=== PATIENT | female | born 1955 | race African-American/Black ===

== ENCOUNTER 2025-05-13 21:02 | Emergency (ER) | payer OTHER ==
[~2025-05-13] VITALS: Ht 175.3 cm; Wt 112.0 kg
[2025-05-13] MEDS ORDERED: PREDNISONE 20MG TABLET PO ONE (21:45)
[2025-05-13] MEDS: PREDNISONE 20MG TABLET PO NR (21:45)
[2025-05-13] MEDS: ALBUTEROL (0.083%) 2.5MG/3ML NEB HHN SCH (22:52)
[2025-05-13] MEDS: IPRATROPIUM BROMIDE (0.02%) 0.5MG/2.5ML NEB HHN SCH (22:52)
[2025-05-13 22:57] VITALS: PULSE 114; RESP 22; O2SAT 96
[2025-05-14 00:03] LABS: BASOPHILS % 0.4 % (0.0-2.0); EOSINOPHILS % 1.5 % (0.0-5.0); HEMATOCRIT. 28.4 % (36.0-48.0); HEMOGLOBIN. 9.1 g/dL (12.0-16.0); LYMPHOCYTES % 9.1 % (20.0-50.0); MEAN PLATELET VOLUME 7.2 fl (7.4-10.4); MONOCYTES % 7.1 % (2.0-8.0); NEUTROPHILS % 81.9 % (40.0-76.0); PLATELET 270 x1000/uL (130-400); RED BLOOD CELL COUNT 3.06 mill/uL (4.2-5.4); RED CELL DISTRIBUTION WIDTH 13.7 % (11.6-14.6)
[2025-05-14 00:13] LABS: INR 0.9
[2025-05-14 00:16] LABS: CREATININE 1.6 mg/dL (0.6-1.0)
[2025-05-14 00:17] LABS: TROPONIN I HIGH SENSITIVITY 20 ng/L (3.0-34); UREA NITROGEN BLOOD 15 mg/dL (9-23)
[2025-05-14 02:07] VITALS: BP 152/78; PULSE 107; RESP 17; TEMP 36.7; O2SAT 96
== END 2025-05-14 03:17 | disposition admitted as inpatient to this hospital (09) ==
LOC: ER 21:02
DX: J44.1 Chronic obstructive pulmonary disease with (acute) exacerbation (principal); F32.A Depression, unspecified; E78.00 Pure hypercholesterolemia, unspecified; I11.0 Hypertensive heart disease with heart failure; I50.9 Heart failure, unspecified
CPT/HCPCS: 99291; 80048; 83880; 85025; 85610; 85730; 84484; 36415; 71045; 93005; 98960; 94644; J7512; 94070; 94640; 94664